=== PATIENT | male | born 1985 | race Caucasian/White ===

== ENCOUNTER 2017-10-12 19:05 | Inpatient (IN) ==
[2017-10-12] MEDS ORDERED: Ondansetron 4 MG/2 ML VIAL IVP ONE ×2 (20:32→23:49)
[2017-10-12] MEDS ORDERED: 0.9 % Sodium Chloride 1,000 ML IVC ONE ×3 (20:32→23:49)
--- NOTE | 2017-10-12 20:33 | Emergency Department Note ---
Disposition Clinical Impression: Tachycardia, Elevated liver enzymes Fever Qualifiers: Fever type: unspecified Qualified Code(s): R50.9 - Fever, unspecified Leukocytosis Qualifiers: Leukocytosis type: unspecified Qualified Code(s): D72.829 - Elevated white blood cell count, unspecified Diarrhea Qualifiers: Diarrhea type: presumed infectious Qualified Code(s): R19.7 - Diarrhea, unspecified Abdominal pain Qualifiers: Abdominal location: unspecified location Qualified Code(s): R10.9 - Unspecified abdominal pain Disposition: Admitted As Inpatient Condition: Fair General Adult HPI - General Chief complaint: ED Nausea/Vomiting/Diarrhea Stated complaint: Vomiting and diarrhea CAROLIN and cold chills Nursing Notes Reviewed: Yes Vital Signs Reviewed: Yes - History of Present Illness HPI Narrative: 32-year-old male presents to emergency department with concern for fever, nausea , vomiting, diarrhea. Patient had cholecystectomy performed on October 01. Patient states that he has done fine since operation. Patient reports having fevers up to 102. States that the reason he came is because of the nausea vomiting and diarrhea. Has reported yellowish loose stools. Nonbloody in nature. States that he has a sick contact at home with son, but he has pneumonia. Children does not have diarrhea. Patient states that the incision sites have not been red or erythematous. Does report having a dose of Clindamycin during surgery. Denies any flank pain, cough, dyspnea, sputum production. Pain Scale: 10 - Related Data Previous Rx's Medication Instructions Recorded OxyCODONE/APAP 10/325 [Percocet 1 each PO Q6HR PRN 6 Days #24 10/01/17 10/325 MG] tablet Allergies Allergy/AdvReac Type Severity Reaction Status Date / Time Penicillins Allergy See Verified 10/01/17 13:53 Comments All systems ED: reviewed and negative except as stated. Review of Systems: As Per HPI Constitutional: Reports: fever Gastrointestinal: Reports: abdominal pain, nausea, vomiting, diarrhea Genitourinary: Denies: urgency, dysuria, frequency, hematuria Musculoskeletal: Denies: back pain, arthralgia, myalgia Integumentary: Denies: rash Neurological: Denies: headache, weakness, numbness Past Medical History - Past Medical History Medical history: Reports: no medical history Psychiatric history: Reports: no psych history - Social History Smoking Status: Former smoker Smokeless Tobacco Status: No Alcohol use: Reports: occasionally Drug use: Reports: none Physical Exam - General Limitations: no limitations, other (Is uncomfortable) General appearance: alert - Head Head exam: atraumatic, normocephalic - Eye Eye exam: Present: EOMI. Absent: scleral icterus, conjunctival injection - ENT ENT exam: mucous membranes dry - Neck Neck exam: Present: trachea midline. Absent: tenderness, meningismus - Chest Chest inspection: Present: symmetric chest wall rise - Respiratory Respiratory exam: Present: normal lung sounds bilaterally. Absent: respiratory distress - Cardiovascular Cardiovascular exam: Present: normal rhythm, tachycardia - Abdominal Exam Abdominal exam: Present: soft, Non-Tender. Absent: distention, guarding, rebound, rigidity - Extremities Exam Extremities exam: Present: full ROM, normal capillary refill - Back Exam Back exam: Absent: CVA tenderness (R), CVA tenderness (L) - Neurological Exam Neurological exam: Present: alert, oriented X3 - Psychiatric Psychiatric exam: Present: normal affect, normal mood - Skin Skin exam: Present: diaphoresis Course Vital Signs Temperature 98.8 F 10/12/17 19:18 Pulse Rate 125 10/12/17 19:18 Respiratory Rate 14 10/12/17 19:18 Blood Pressure 128/81 10/12/17 19:18 O2 Sat by Pulse Oximetry 96 10/12/17 19:18 Temperature 98.4 F 10/13/17 01:39 Pulse Rate 120 10/13/17 01:39 Respiratory Rate 20 10/13/17 01:39 Blood Pressure 126/55 10/13/17 01:39 O2 Sat by Pulse Oximetry 95 10/13/17 01:39 Oxygen Delivery Oxygen Delivery Room Air Medical Decision Making - [facility] Narrative Medical decision making narrative: 32-year-old male presents to the emergency department with fever, tachycardia, diarrhea. Patient had surgery done by Dr. Gray on October 01. Patient does not report any abdominal pain. There is concern for infection, possibly GI, possibly respiratory, and PE as patient was 94% on room air at times and tachycardic. Tmax of 102. CTA of the chest do not reveal any evidence of pulmonary embolus. It was, however, a poor study. CT of the abdomen and pelvis does not reveal any evidence of any acute abnormality either. Patient did have elevated hepatic transaminases. There may be some concern for possibility of retained gallstone. Has not been ruled out at this time. Patient has had loose stools. He did have clindamycin prior to surgery, but it was only a one-time dose. There is some concern for C. difficile. We have ordered a GI infection panel. Patient has mild leukocytosis. I spoke with Dr. Espino, the general surgeon regarding the case, and she stated that she would recommend hospitalization for the patient, but wanted the hospitalist to admit patient. I spoke with the hospitalist regarding her the patient and agree to accept admission. Patient was given Flagyl and Rocephin in the emergency department to cover C. difficile as well as gram negatives for possible GI infection. I spoke with patient and at bedside who is nurse, and agree with the plan. Patient was given a total of 3 L of fluid in the emergency department. He was also given analgesia for his pain as well as Zofran. He was still tachycardic at time of admission, but his heart rate decreased from 125 to the low 100s. Lactic acid was normal, normal renal function. Abdomen/Pelvis CT 10/12/17 20:45 IMPRESSION: 1. There is mild induration noted near the umbilicus as well as in the cholecystectomy bed, compatible with recent surgery. No focal fluid collection is identified. 2. Suboptimal opacification of the pulmonary arteries with intravenous contrast. However, there is no evidence of a pulmonary embolism or parenchymal lung infiltrate. 3. The appendix is visualized and normal in appearance. D/ / 10/12/2017 23:01:21 Bunny Kauffman MD / kiana Interpreting Provider: Bunny Kauffman MD Chest X-Ray 10/12/17 20:46 IMPRESSION: No acute cardiopulmonary process. D/ / 10/12/2017 21:52:31 Bigg Keith MD / kiana Interpreting Provider: Bigg Keith MD Chest CTA 10/12/17 21:41 IMPRESSION: 1. There is mild induration noted near the umbilicus as well as in the cholecystectomy bed, compatible with recent surgery. No focal fluid collection is identified. 2. Suboptimal opacification of the pulmonary arteries with intravenous contrast. However, there is no evidence of a pulmonary embolism or parenchymal lung infiltrate. 3. The appendix is visualized and normal in appearance. D/ / 10/12/2017 23:01:21 Bunny Kauffman MD / kiana Interpreting Provider: Bunny Kauffman MD Vital Signs Temperature 98.8 F 10/12/17 19:18 Pulse Rate 125 10/12/17 19:18 Respiratory Rate 14 10/12/17 19:18 Blood Pressure 128/81 10/12/17 19:18 O2 Sat by Pulse Oximetry 96 10/12/17 19:18 Temperature 98.4 F 10/13/17 01:39 Pulse Rate 120 10/13/17 01:39 Respiratory Rate 20 10/13/17 01:39 Blood Pressure 126/55 10/13/17 01:39 O2 Sat by Pulse Oximetry 95 10/13/17 01:39 Oxygen Delivery Oxygen Delivery Room Air - Lab Data Result diagrams: 10/12/17 20:42 10/12/17 20:42 Lab Results 10/12/17 10/12/17 10/12/17 Range/Units 20:34 20:42 20:42 WBC 13.5 H (4.3-11.1) K/mcL RBC 6.18 H (4.19-5.50) M/mcL Hgb 19.0 H (12.9-16.9) g/dL Hct 52.5 H (37.5-50.1) % MCV 85.0 (83.0-100.0) fL MCH 30.7 (28.0-33.3) pg MCHC 36.2 H (31.6-35.5) g/dL RDW 12.4 (11.5-14.5) % Plt Count 313 (140-400) K/mcL MPV 11.2 (9.4-12.4) fL Immature Gran % 0.7 (0-4) % Seg Neutrophils % 89.9 % Lymphocytes % 2.7 % Monocytes % 6.2 % Eosinophils % 0.3 % Basophils % 0.2 % Neutrophils # 12.1 H (1.6-8.9) K/mcL Lymphocytes # 0.4 L (0.6-4.6) K/mcL Monocytes # 0.8 (0.0-1.3) K/mcL Eosinophils # 0.0 (0.0-0.6) K/mcL Basophils # 0.0 (0.0-0.2) K/mcL Sodium 136 (136-145) mEq/L Potassium 3.9 (3.5-5.1) mEq/L Chloride 102 (98-107) mEq/L Carbon Dioxide 23 (23-29) mEq/L BUN 12 (6-20) mg/dL Creatinine 1.21 (0.70-1.30) mg/dL Est GFR ( Amer) > 60 (> 60) Est GFR (Non-Af Amer) > 60 (> 60) BUN/Creatinine Ratio 10 (6-26) Glucose 98 (70-105) mg/dL Calculated Osmolality 282 (280-300) Lactic Acid (0.5-2.2) mmol/L Calcium 10.1 (8.6-10.3) mg/dL Total Bilirubin 1.2 H (0.3-1.0) mg/dL Direct Bilirubin 0.2 (0.0-0.2) mg/dL Indirect Bilirubin 1.0 (0.0-1.2) mg/dL AST 45 H (13-39) Units/L ALT 115 H (7-52) Units/L Alkaline Phosphatase 168 H (34-104) Units/L Serum Total Protein 8.2 (6.4-8.9) g/dL Albumin 5.2 (3.5-5.7) g/dL Globulin 3.0 (2.4-3.5) g/dL Albumin/Globulin Ratio 1.7 (1.1-2.2) Lipase 24 (11-82) Units/L Urine Color Dark Yellow (Yellow) Urine Clarity Clear (Clear) Urine pH 5.5 (5.0-8.0) pH Units Ur Specific [place] 1.029 H (1.010-1.025) Urine Protein Trace (Neg-Trace) mg/dL Urine Glucose (UA) Normal (Normal) mg/dL Urine Ketones Trace H (Negative) mg/dL Urine Blood Negative (Negative) Urine Nitrite Negative (Negative) Urine Bilirubin Small H (Negative) Urine Urobilinogen Normal (Normal) mg/dL Ur Leukocyte Esterase Small H (Negative) Urine Microscopic RBC 0-3 (0-3) per hpf Urine Microscopic WBC 5-15 H (0-3) per hpf Ur Squamous Epith Cells Many H (None-Few) per lpf Urine Bacteria None Seen (None-Few) per hpf Hyaline Casts Few (None-Few) per lpf Ur Culture Indicated? NO. A (NO) 10/12/17 Range/Units 20:42 WBC (4.3-11.1) K/mcL RBC (4.19-5.50) M/mcL Hgb (12.9-16.9) g/dL Hct (37.5-50.1) % MCV (83.0-100.0) fL MCH (28.0-33.3) pg MCHC (31.6-35.5) g/dL RDW (11.5-14.5) % Plt Count (140-400) K/mcL MPV (9.4-12.4) fL Immature Gran % (0-4) % Seg Neutrophils % % Lymphocytes % % Monocytes % % Eosinophils % % Basophils % % Neutrophils # (1.6-8.9) K/mcL Lymphocytes # (0.6-4.6) K/mcL Monocytes # (0.0-1.3) K/mcL Eosinophils # (0.0-0.6) K/mcL Basophils # (0.0-0.2) K/mcL Sodium (136-145) mEq/L Potassium (3.5-5.1) mEq/L Chloride (98-107) mEq/L Carbon Dioxide (23-29) mEq/L BUN (6-20) mg/dL Creatinine (0.70-1.30) mg/dL Est GFR ( Amer) (> 60) Est GFR (Non-Af Amer) (> 60) BUN/Creatinine Ratio (6-26) Glucose (70-105) mg/dL Calculated Osmolality (280-300) Lactic Acid 1.9 (0.5-2.2) mmol/L Calcium (8.6-10.3) mg/dL Total Bilirubin (0.3-1.0) mg/dL Direct Bilirubin (0.0-0.2) mg/dL Indirect Bilirubin (0.0-1.2) mg/dL AST (13-39) Units/L ALT (7-52) Units/L Alkaline Phosphatase (34-104) Units/L Serum Total Protein (6.4-8.9) g/dL Albumin (3.5-5.7) g/dL Globulin (2.4-3.5) g/dL Albumin/Globulin Ratio (1.1-2.2) Lipase (11-82) Units/L Urine Color (Yellow) Urine Clarity (Clear) Urine pH (5.0-8.0) pH Units Ur Specific [place] (1.010-1.025) Urine Protein (Neg-Trace) mg/dL Urine Glucose (UA) (Normal) mg/dL Urine Ketones (Negative) mg/dL Urine Blood (Negative) Urine Nitrite (Negative) Urine Bilirubin (Negative) Urine Urobilinogen (Normal) mg/dL Ur Leukocyte Esterase (Negative) Urine Microscopic RBC (0-3) per hpf Urine Microscopic WBC (0-3) per hpf Ur Squamous Epith Cells (None-Few) per lpf Urine Bacteria (None-Few) per hpf Hyaline Casts (None-Few) per lpf Ur Culture Indicated? (NO)
[2017-10-12] MEDS ORDERED: Isovue-370 500 ML INFUS..BTL IV ONE (20:45)
[2017-10-12 20:59] LABS: Basophils % 0.2 %; Eosinophils % 0.3 %; Hematocrit 52.5 % (37.5-50.1); Immature Granulocytes % 0.7 % (0-4); Lymphocytes # 0.4 K/mcL (0.6-4.6); Lymphocytes % 2.7 %; Mean Corpuscular HGB Conc 36.2 g/dL (31.6-35.5); Mean Corpuscular Hemoglobin 30.7 pg (28.0-33.3); Mean Platelet Volume 11.2 fL (9.4-12.4); Monocytes # 0.8 K/mcL (0.0-1.3); Monocytes % 6.2 %; Neutrophils # 12.1 K/mcL (1.6-8.9); Platelet Count 313 K/mcL (140-400); Red Blood Count 6.18 M/mcL (4.19-5.50); Red Cell Distribution Width 12.4 % (11.5-14.5); Segmented Neutrophils % 89.9 %
[2017-10-12 20:59] LABS: Bilirubin,Urine Small (Negative); Blood,Urine Negative (Negative); Clarity,Urine Clear (Clear); Color,Urine Dark Yellow (Yellow); Glucose,Urine (UA) Normal (Normal); Ketones,Urine Trace mg/dL (Negative); Leukocyte Esterase,Urine Small (Negative); Nitrite,Urine Negative (Negative); PH,Urine 5.5 pH Units (5.0-8.0); Protein,Urine Trace mg/dL (Neg-Trace); Specific Gravity,Urine 1.029 (1.010-1.025); Urobilinogen,Urine Normal (Normal)
[2017-10-12 21:02] LABS: Bacteria,Urine None Seen per hpf (None-Few); Hyaline Casts,Urine Few per lpf (None-Few); RBC,Urine 0-3 per hpf (0-3); Squamous Epithelial Cell,Urine Many per lpf (None-Few)
[2017-10-12 21:30] LABS: Alanine Aminotransferase 115 Units/L (7-52); Albumin 5.2 g/dL (3.5-5.7); Albumin/Globulin Ratio 1.7 (1.1-2.2); Alkaline Phosphatase 168 Units/L (34-104); Aspartate Amino Transferase 45 Units/L (13-39); BUN/Creatinine Ratio 10 (6-26); Bilirubin,Direct 0.2 mg/dL (0.0-0.2); Bilirubin,Total 1.2 mg/dL (0.3-1.0); Blood Urea Nitrogen 12 mg/dL (6-20); Calcium 10.1 mg/dL (8.6-10.3); Carbon Dioxide 23 mEq/L (23-29); Chloride 102 mEq/L (98-107); Glucose 98 mg/dL (70-105); Lipase 24 Units/L (11-82); Osmolality,Calculated 282 (280-300); Potassium 3.9 mEq/L (3.5-5.1); Sodium 136 mEq/L (136-145); Total Protein 8.2 g/dL (6.4-8.9); eGFR For African Americans > 60 (> 60); eGFR For Non-African Americans > 60 (> 60)
--- NOTE | 2017-10-12 22:42 | Emergency Department Note ---
Disposition Clinical Impression: Abdominal pain, Fever Disposition: Still a Patient Condition: Fair Referrals: Jeff Ahuja MD [Primary Care Provider] - Forms: ED Satisfaction Letter, Work/School Release General Adult HPI - General Chief complaint: ED Nausea/Vomiting/Diarrhea Stated complaint: Vomiting and diarrhea CAROLIN and cold chills Time Seen by Provider: 10/12/17 20:34 Source: patient Mode of arrival: ambulatory Limitations: no limitations Nursing Notes Reviewed: Yes Vital Signs Reviewed: Yes - History of Present Illness Pain Scale: 5 - Related Data Previous Rx's Medication Instructions Recorded OxyCODONE/APAP 10/325 [Percocet 1 each PO Q6HR PRN 6 Days #24 10/01/17 10/325 MG] tablet Allergies Allergy/AdvReac Type Severity Reaction Status Date / Time Penicillins Allergy See Verified 10/01/17 13:53 Comments Past Medical History - Past Medical History Medical history: Reports: no medical history Psychiatric history: Reports: no psych history - Social History Smoking Status: Former smoker Smokeless Tobacco Status: No Alcohol use: Reports: occasionally Drug use: Reports: none Physical Exam - General General appearance: alert, in no apparent distress Course Vital Signs Temperature 98.8 F 10/12/17 19:18 Pulse Rate 125 10/12/17 19:18 Respiratory Rate 14 10/12/17 19:18 Blood Pressure 128/81 10/12/17 19:18 O2 Sat by Pulse Oximetry 96 10/12/17 19:18 Temperature 98.8 F 10/12/17 21:00 Pulse Rate 104 10/12/17 22:30 Respiratory Rate 20 10/12/17 22:30 Blood Pressure 151/92 10/12/17 22:30 O2 Sat by Pulse Oximetry 99 10/12/17 22:30 Oxygen Delivery Oxygen Delivery Room Air Medical Decision Making - Lab Data Result diagrams: 10/12/17 20:42 10/12/17 20:42 Lab Results 10/12/17 10/12/17 10/12/17 Range/Units 20:34 20:42 20:42 WBC 13.5 H (4.3-11.1) K/mcL RBC 6.18 H (4.19-5.50) M/mcL Hgb 19.0 H (12.9-16.9) g/dL Hct 52.5 H (37.5-50.1) % MCV 85.0 (83.0-100.0) fL MCH 30.7 (28.0-33.3) pg MCHC 36.2 H (31.6-35.5) g/dL RDW 12.4 (11.5-14.5) % Plt Count 313 (140-400) K/mcL MPV 11.2 (9.4-12.4) fL Immature Gran % 0.7 (0-4) % Seg Neutrophils % 89.9 % Lymphocytes % 2.7 % Monocytes % 6.2 % Eosinophils % 0.3 % Basophils % 0.2 % Neutrophils # 12.1 H (1.6-8.9) K/mcL Lymphocytes # 0.4 L (0.6-4.6) K/mcL Monocytes # 0.8 (0.0-1.3) K/mcL Eosinophils # 0.0 (0.0-0.6) K/mcL Basophils # 0.0 (0.0-0.2) K/mcL Sodium 136 (136-145) mEq/L Potassium 3.9 (3.5-5.1) mEq/L Chloride 102 (98-107) mEq/L Carbon Dioxide 23 (23-29) mEq/L BUN 12 (6-20) mg/dL Creatinine 1.21 (0.70-1.30) mg/dL Est GFR ( Amer) > 60 (> 60) Est GFR (Non-Af Amer) > 60 (> 60) BUN/Creatinine Ratio 10 (6-26) Glucose 98 (70-105) mg/dL Calculated Osmolality 282 (280-300) Lactic Acid (0.5-2.2) mmol/L Calcium 10.1 (8.6-10.3) mg/dL Total Bilirubin 1.2 H (0.3-1.0) mg/dL Direct Bilirubin 0.2 (0.0-0.2) mg/dL Indirect Bilirubin 1.0 (0.0-1.2) mg/dL AST 45 H (13-39) Units/L ALT 115 H (7-52) Units/L Alkaline Phosphatase 168 H (34-104) Units/L Serum Total Protein 8.2 (6.4-8.9) g/dL Albumin 5.2 (3.5-5.7) g/dL Globulin 3.0 (2.4-3.5) g/dL Albumin/Globulin Ratio 1.7 (1.1-2.2) Lipase 24 (11-82) Units/L Urine Color Dark Yellow (Yellow) Urine Clarity Clear (Clear) Urine pH 5.5 (5.0-8.0) pH Units Ur Specific [place] 1.029 H (1.010-1.025) Urine Protein Trace (Neg-Trace) mg/dL Urine Glucose (UA) Normal (Normal) mg/dL Urine Ketones Trace H (Negative) mg/dL Urine Blood Negative (Negative) Urine Nitrite Negative (Negative) Urine Bilirubin Small H (Negative) Urine Urobilinogen Normal (Normal) mg/dL Ur Leukocyte Esterase Small H (Negative) Urine Microscopic RBC 0-3 (0-3) per hpf Urine Microscopic WBC 5-15 H (0-3) per hpf Ur Squamous Epith Cells Many H (None-Few) per lpf Urine Bacteria None Seen (None-Few) per hpf Hyaline Casts Few (None-Few) per lpf Ur Culture Indicated? NO. A (NO) 10/12/17 Range/Units 20:42 WBC (4.3-11.1) K/mcL RBC (4.19-5.50) M/mcL Hgb (12.9-16.9) g/dL Hct (37.5-50.1) % MCV (83.0-100.0) fL MCH (28.0-33.3) pg MCHC (31.6-35.5) g/dL RDW (11.5-14.5) % Plt Count (140-400) K/mcL MPV (9.4-12.4) fL Immature Gran % (0-4) % Seg Neutrophils % % Lymphocytes % % Monocytes % % Eosinophils % % Basophils % % Neutrophils # (1.6-8.9) K/mcL Lymphocytes # (0.6-4.6) K/mcL Monocytes # (0.0-1.3) K/mcL Eosinophils # (0.0-0.6) K/mcL Basophils # (0.0-0.2) K/mcL Sodium (136-145) mEq/L Potassium (3.5-5.1) mEq/L Chloride (98-107) mEq/L Carbon Dioxide (23-29) mEq/L BUN (6-20) mg/dL Creatinine (0.70-1.30) mg/dL Est GFR ( Amer) (> 60) Est GFR (Non-Af Amer) (> 60) BUN/Creatinine Ratio (6-26) Glucose (70-105) mg/dL Calculated Osmolality (280-300) Lactic Acid 1.9 (0.5-2.2) mmol/L Calcium (8.6-10.3) mg/dL Total Bilirubin (0.3-1.0) mg/dL Direct Bilirubin (0.0-0.2) mg/dL Indirect Bilirubin (0.0-1.2) mg/dL AST (13-39) Units/L ALT (7-52) Units/L Alkaline Phosphatase (34-104) Units/L Serum Total Protein (6.4-8.9) g/dL Albumin (3.5-5.7) g/dL Globulin (2.4-3.5) g/dL Albumin/Globulin Ratio (1.1-2.2) Lipase (11-82) Units/L Urine Color (Yellow) Urine Clarity (Clear) Urine pH (5.0-8.0) pH Units Ur Specific [place] (1.010-1.025) Urine Protein (Neg-Trace) mg/dL Urine Glucose (UA) (Normal) mg/dL Urine Ketones (Negative) mg/dL Urine Blood (Negative) Urine Nitrite (Negative) Urine Bilirubin (Negative) Urine Urobilinogen (Normal) mg/dL Ur Leukocyte Esterase (Negative) Urine Microscopic RBC (0-3) per hpf Urine Microscopic WBC (0-3) per hpf Ur Squamous Epith Cells (None-Few) per lpf Urine Bacteria (None-Few) per hpf Hyaline Casts (None-Few) per lpf Ur Culture Indicated? (NO) Attestation Statement - Attestation Attestation: I, Romero Quezada, examined this patient and my medical decision-making was reviewed with the STATIONARY STEAM ENGINEER/PA/Advanced Practice Nurse/Resident Physician. I agree with the documented findings, disposition and treatment plan as described except to the extent set forth below. 32-year-old male presents emergency Department with concerns of vomiting and diarrhea. Patient had a recent cholecystectomy by Dr. Gray 1.5 weeks ago. He reports a fever of 102 today prior to arrival. He describes multiple episodes of vomiting and yellow mucus diarrhea. States he had a surgery that was without complication. His surgical sites have not been draining fluid or had increased pain. Patient denies recent trauma. Patient was tachycardic to 125 on arrival. This improved with IV fluids. We will obtain a CTA of the chest to rule out PE, CT of the abdomen and pelvis with IV contrast to further evaluate for possible abscess. Imaging is pending at this time.
[2017-10-12] MEDS ORDERED: MetroNIDAZOLE 500 MG/100 ML 500 MG/100 ML BAG IVPB ONE (23:48)
[2017-10-12] MEDS ORDERED: cefTRIAXone 1,000 MG in Water for inj. (sterile) 20 ML 10 ML IVP ONE (23:48)
[2017-10-12] MEDS ORDERED: *HR* OxyCODONE/APAP 5/325 TABLET PO ONE (23:49)
[2017-10-12] MEDS ORDERED: Ketorolac 15 MG/ML VIAL IVP ONE (23:50)
--- NOTE | 2017-10-13 01:19 | Internal Med History&Physical ---
Date of Encounter: 10/13/17 Time of Encounter: 01:16 Internal Medicine - H&P: HPI Chief complaint: Fever Admitted From: Emergency Dept Plans for Post Hospital Care: Home History of present illness: Mr. Olivier is a 32 year old male who recently underwent a laparoscopic cholecystectomy on 10/01 and was discharged. The patient presents to the ED with complaints of fever, tachycardia, and diarrhea that is watery. The patient also has been nauseated and vomited since this morning. No abdominal pain. In the ED the patient was noted to have a fever 102.7 and was tachycardic. Blood pressure was stable. Laboratory workup showed a white count of 13.5 with hemoglobin of 19.0. Lites were within normal limits. He had elevated LFTs which was not the case earlier in September. Creatinine was 1.21 with previous creatinine of 0.92. He had a CT head and pelvis done as well as a CTA chest came back with nothing acute. Urinalysis was negative for UTI. Because of his fever and diarrhea the patient was given Rocephin and Flagyl and was admitted. Denies any headache, blurry vision, chest pain, shortness of breath, abdominal pain, constipation, lower extremity edema, urinary symptoms, or neurological symptoms. Past Med Surg Social Fam HX - Past Medical History Medical history: no medical history Additional medical history: OBSTRUCTIVE SLEEP APNEA. DYSURIA. FREQUENT URINATION. NOCTURIA Psychiatric history: no psych history - Past Surgical History Additional surgical history: Left knee. partial lateral menisectomy X2 - Social History Smoking Status: Former smoker Smokeless Tobacco Status: No Alcohol use: occasionally Drug use: none Internal Medicine - H&P: Meds OxyCODONE/APAP 10/325 [Percocet 10/325 MG] 1 each PO Q6HR PRN 6 Days #24 tablet 10/01/17 [Rx] 3 Allergy/AdvReac Type Severity Reaction Status Date / Time Penicillins Allergy See Verified 10/01/17 13:53 Comments All Systems PM: A 10-system review of systems was performed and is negative for pertinent findings except as documented above in the HPI. Review of systems: All systems reviewed are negative except for as mentioned above - Constitutional Vitals: Temp Pulse Resp BP Pulse Ox 100.5 F H 107 20 124/77 96 10/13/17 00:57 10/13/17 01:02 10/13/17 01:02 10/13/17 01:02 10/13/17 01:02 Exam: GEN: NAD HEENT: AT, NC, No cyanosis, oral mucosa is moist, No JVD Lymphatics: No lymphadenoapthy Eyes: Extrocular muscles intact, anicteric CVS:RRR. S1, S2, No m/r/g RESP: CTAB ABD: Soft, NT, ND, +BS EXT: No edema, No rashes, 2+ DP NEURO: Nonfocal, CN II-XII intact, No focal motor or sensory deficits Psych: Cooperative, Not anxious or depressed Internal Med - H&P Results - Labs CBC & Chem 7: 10/12/17 20:42 10/12/17 20:42 - Assessment and plan (1) SIRS (systemic inflammatory response syndrome) Current Visit: Yes Status: Acute Assessment and plan: Patient meets SIRS criteria with elevated heart rate as well as leukocytosis and fever. No source is obvious for now. Given his diarrhea and exposure to antibiotics as patient received 1 dose of clindamycin with the surgery, will rule out C. difficile. We will keep the patient on IV Flagyl empirically. We will keep the patient on Rocephin as well given his elevated LFTs although I believe some of that is possibly dehydrational. (2) Leukocytosis Current Visit: Yes Status: Acute Assessment and plan: Check C. difficile. Check GI panel. Empiric antibiotics as above. Workup is negative so far. Qualifiers: Leukocytosis type: unspecified Qualified Code(s): D72.829 - Elevated white blood cell count, unspecified (3) Dehydration Current Visit: Yes Status: Acute Assessment and plan: Patient has signs of dehydration with elevated kidney function as well as polycythemia. We will continue IV fluids. The patient received a couple boluses in the ED. Labs in the morning. (4) Transaminitis Current Visit: Yes Status: Acute Assessment and plan: Possibly dehydrational. We will check labs in the morning after IV hydration. Surgery to see. (5) Polycythemia Current Visit: Yes Status: Acute Assessment and plan: Likely dehydrational. We will see what his hemoglobin looks like after hydration. (6) NATACHA (acute kidney injury) Current Visit: Yes Status: Acute Assessment and plan: Continue IV hydration. Avoid nephrotoxins. Labs in the morning. (7) S/P laparoscopic cholecystectomy Current Visit: Yes Status: Acute Assessment and plan: Surgery to see. Patient has elevated LFTs. CT abdomen and pelvis with nothing acute. (8) DVT prophylaxis Current Visit: Yes Status: Acute Assessment and plan: Heparin subcutaneous - Time Spent With Patient Total time spent is greater than 50% in coordination of care (as documented) at patient's floor/unit and/or counseling patient:
[2017-10-13] MEDS ORDERED: Ondansetron 4 MG/2 ML VIAL IVP PRN (01:21)
[2017-10-13] MEDS ORDERED: Naloxone 0.4 MG/ML INJ IVP PRN ×2 (01:22)
[2017-10-13] MEDS: 0.9 % Sodium Chloride 1,000 ML IVC SCH ×2 (02:01→08:02)
--- NOTE | 2017-10-13 07:22 | General Surgery Consult Note ---
<Tan Morillo R - Last Filed: 10/13/17 07:55> Date of Encounter: 10/13/17 Time of Encounter: 07:20 Assessment and Plan (1) Fever Status: Acute POD # 11 s/p uncomplicated laparoscopic cholecystectomy for calculus of gallbladder without cholecystitis, without obstruction (10/01/17) - incision sites are clean, dry, intact, without erythema, warmth, tenderness, or drainage Acute onset of symptoms one day ago - N/V/D, fever, dyspnea CT chest/abd/pelvis with no acute findings - mild induration consistent with recent surgery, no focal fluid collection, no dilation of hepatic ducts, no evidence of biliary clip leakage Leukocytosis and polycythemia - suspect dehydration contributing Transaminitis - AST 45, ALT 115, and Alk Phos 168 - normal at time of surgery No evidence of surgical complications, or surgical need at this time. Presentation appears more consistent with gastroenteritis PLAN: Continue IV hydration, supportive care, antiemetics GI panel pending Continue antibiotics No other imaging at this time Will continue to follow with you Qualifiers: Fever type: unspecified Qualified Code(s): R50.9 - Fever, unspecified (2) Transaminitis Status: Acute (3) S/P laparoscopic cholecystectomy Status: Acute History of Present Illness Consult date: 10/12/17 Reason for consult: other (elevated transaminases s/p cholecystectomy) Requesting physician: Chris Freitas History of present illness: 32 year old male with no PMH presented to [facility] with complaint of nausea, vomiting, and yellow mucous-like diarrhea. His symptoms began yesterday afternoon. Associated symptoms include fever up to 102, mild dyspnea, and generalized body aches. He is 11 days post-op from uncomplicated laparoscopic cholecystectomy on 10/01/17. He reports his incision sites are healing well, without redness, warmth, tenderness, or drainage. He reports some intermittent epigastric discomfort only with fatty foods. Denies other abdominal pain, hematochezia, or melena. Denies change in appetite or weight loss. Denies cough or chest pain. Sick contacts include his son was diagnosed with pneumonia last week. Past Med Surg Social Fam HX - Past Medical History Medical history: no medical history Additional medical history: OBSTRUCTIVE SLEEP APNEA. DYSURIA. FREQUENT URINATION. NOCTURIA Psychiatric history: no psych history - Past Surgical History Surgical History: cholecystectomy Additional surgical history: Left knee. partial lateral menisectomy X2 - Social History Smoking Status: Former smoker Smokeless Tobacco Status: No Alcohol use: occasionally Drug use: none - Family History Mother Living Status: Still Living Hx Family Cardiac Disorders: Yes (htn) Father Living Status: Still Living Hx Family Cardiac Disorders: Yes ([place]) Medications and Allergies Ondansetron ODT [Zofran ODT] 4 mg SL Q6HR #16 tab.rapdis 10/13/17 [Rx] metroNIDAZOLE [Flagyl] 500 mg PO ONCE #5 tablet 10/13/17 [Rx] 3 Allergy/AdvReac Type Severity Reaction Status Date / Time Penicillins Allergy See Verified 10/01/17 13:53 Comments Review of Systems All systems PM: reviewed and no additional remarkable complaints except as stated All systems PM: The remainder of the systems were reviewed and are negative General Surgery Exam Initial Vital Signs Temp Pulse Resp BP Pulse Ox 98.8 F 125 14 128/81 96 10/12/17 19:18 10/12/17 19:18 10/12/17 19:18 10/12/17 19:18 10/12/17 19:18 - Additional Findings VITAL SIGNS: Reviewed. See [facility] GENERAL: no apparent distress HEENT: Normocephalic, PER, EOMI, oropharynx pink/moist, no JVD noted CV: b/l rad pulses 2+, regular rhythm, tachycardia, no murmurs or gallops RESPIRATORY: CTAB. No weehzes, rhonchi, or crackles ABD: soft, nontender, nondistended, no rebound/guarding/rigidity, no peritoneal signs. Bowel sounds normal INCISION: clean, dry, intact without purulence/bleeding/edema/rubor/calor EXTREMITY: grossly normal motor function, no pedal edema, peripheral pulses 2+ b /l NEUROLOGIC EXAM: AOx3, obeys commands, no speech deficits. PSYCHIATRIC: normal mood and affect SKIN: no gross lesions, rashes, or skin changes Exam Initial Vital Signs Temp Pulse Resp BP Pulse Ox 98.8 F 125 14 128/81 96 10/12/17 19:18 10/12/17 19:18 10/12/17 19:18 10/12/17 19:18 10/12/17 19:18 Results - Labs 10/12/17 20:42 10/12/17 20:42 Abnormal lab results WBC 13.5 K/mcL (4.3-11.1) H 10/12/17 20:42 RBC 6.18 M/mcL (4.19-5.50) H 10/12/17 20:42 Hgb 19.0 g/dL (12.9-16.9) H 10/12/17 20:42 Hct 52.5 % (37.5-50.1) H 10/12/17 20:42 MCHC 36.2 g/dL (31.6-35.5) H 10/12/17 20:42 Neutrophils # 12.1 K/mcL (1.6-8.9) H 10/12/17 20:42 Lymphocytes # 0.4 K/mcL (0.6-4.6) L 10/12/17 20:42 Total Bilirubin 1.2 mg/dL (0.3-1.0) H 10/12/17 20:42 AST 45 Units/L (13-39) H 10/12/17 20:42 ALT 115 Units/L (7-52) H 10/12/17 20:42 Alkaline Phosphatase 168 Units/L (34-104) H 10/12/17 20:42 Ur Specific [place] 1.029 (1.010-1.025) H 10/12/17 20:34 Urine Ketones Trace mg/dL (Negative) H 10/12/17 20:34 Urine Bilirubin Small (Negative) H 10/12/17 20:34 Ur Leukocyte Esterase Small (Negative) H 10/12/17 20:34 Urine Microscopic WBC 5-15 per hpf (0-3) H 10/12/17 20:34 Ur Squamous Epith Cells Many per lpf (None-Few) H 10/12/17 20:34 Ur Culture Indicated? NO. (NO) A 10/12/17 20:34 All other labs normal. Consult Discharge Plan - Plan Instructions: Metronidazole (By mouth), Ondansetron (By mouth) Referrals: Rajwinder Forbes CNP [Advanced Practice Nurse] - 10/15/17 9:15 am Jeff Ahuja MD [Primary Care Provider] - (The office will call you with a follow-up appointment. ) Prescriptions: Ondansetron ODT [Zofran ODT] 4 mg SL Q6HR #16 tab.rapdis metroNIDAZOLE [Flagyl] 500 mg PO ONCE #5 tablet <Ze Gray T - Last Filed: 10/14/17 13:44> Date of Encounter: 10/13/17 Review of Systems All systems PM: The remainder of the systems were reviewed and are negative General Surgery Exam Initial Vital Signs Temp Pulse Resp BP Pulse Ox 98.8 F 125 14 128/81 96 10/12/17 19:18 10/12/17 19:18 10/12/17 19:18 10/12/17 19:18 10/12/17 19:18 Exam Initial Vital Signs Temp Pulse Resp BP Pulse Ox 98.8 F 125 14 128/81 96 10/12/17 19:18 10/12/17 19:18 10/12/17 19:18 10/12/17 19:18 10/12/17 19:18 Results - Labs 10/13/17 07:20 10/13/17 07:20 Abnormal lab results Lymphocytes # 0.4 K/mcL (0.6-4.6) L 10/13/17 07:20 PT 12.8 Seconds (9.4-12.1) H 10/13/17 07:20 Chloride 108 mEq/L (98-107) H 10/13/17 07:20 Carbon Dioxide 22 mEq/L (23-29) L 10/13/17 07:20 Calcium 8.2 mg/dL (8.6-10.3) L 10/13/17 07:20 ALT 85 Units/L (7-52) H 10/13/17 07:20 Alkaline Phosphatase 105 Units/L (34-104) H 10/13/17 07:20 Serum Total Protein 5.3 g/dL (6.4-8.9) L 10/13/17 07:20 Albumin 3.4 g/dL (3.5-5.7) L 10/13/17 07:20 Globulin 1.9 g/dL (2.4-3.5) L 10/13/17 07:20 Ur Specific [place] 1.029 (1.010-1.025) H 10/12/17 20:34 Urine Ketones Trace mg/dL (Negative) H 10/12/17 20:34 Urine Bilirubin Small (Negative) H 10/12/17 20:34 Ur Leukocyte Esterase Small (Negative) H 10/12/17 20:34 Urine Microscopic WBC 5-15 per hpf (0-3) H 10/12/17 20:34 Ur Squamous Epith Cells Many per lpf (None-Few) H 10/12/17 20:34 Ur Culture Indicated? NO. (NO) A 10/12/17 20:34 Stl Norovirus GI/GII PCR DETECTED (Not detect) A 10/13/17 08:10 All other labs normal. - Attending Attestation I examined this patient and my medical decision-making was reviewed with the Resident Physician. I agree with the documented findings, disposition and treatment plan as described except to the extent set forth below. The patient is seen and evaluated on morning rounds with the resident. The patient had laparoscopic cholecystectomy several weeks ago. He is well-healed. He presents with diarrhea. CAT scan is reviewed. There is no evidence of complication from surgery no evidence of bile leak. We will be glad to follow along with you Dasia Gray MD FACS
[2017-10-13] MEDS ORDERED: MetroNIDAZOLE 500 MG/100 ML 500 MG/100 ML BAG IVPB SCH (08:00)
[2017-10-13] MEDS: Acetaminophen 325 MG TABLET PO PRN ×2 (08:01→13:56)
[2017-10-13 08:27] LABS: Basophils % 0.1 %; Eosinophils % 0.1 %; Hematocrit 41.6 % (37.5-50.1); Immature Granulocytes % 0.7 % (0-4); Lymphocytes # 0.4 K/mcL (0.6-4.6); Lymphocytes % 5.6 %; Mean Corpuscular HGB Conc 34.1 g/dL (31.6-35.5); Mean Corpuscular Volume 85.1 fL (83.0-100.0); Mean Platelet Volume 11.2 fL (9.4-12.4); Monocytes % 13.6 %; Platelet Count 221 K/mcL (140-400); Red Blood Count 4.89 M/mcL (4.19-5.50); Red Cell Distribution Width 12.5 % (11.5-14.5); Segmented Neutrophils % 79.9 %
[2017-10-13 08:31] LABS: INR 1.2; Prothrombin Time 12.8 Seconds (9.4-12.1)
[2017-10-13 08:50] LABS: Alanine Aminotransferase 85 Units/L (7-52); Albumin 3.4 g/dL (3.5-5.7); Albumin/Globulin Ratio 1.8 (1.1-2.2); Alkaline Phosphatase 105 Units/L (34-104); Aspartate Amino Transferase 39 Units/L (13-39); BUN/Creatinine Ratio 9 (6-26); Blood Urea Nitrogen 9 mg/dL (6-20); Calcium 8.2 mg/dL (8.6-10.3); Carbon Dioxide 22 mEq/L (23-29); Chloride 108 mEq/L (98-107); Globulin 1.9 g/dL (2.4-3.5); Glucose 90 mg/dL (70-105); Magnesium 1.7 mg/dL (1.6-2.6); Osmolality,Calculated 284 (280-300); Potassium 3.8 mEq/L (3.5-5.1); Sodium 138 mEq/L (136-145); Total Protein 5.3 g/dL (6.4-8.9); eGFR For African Americans > 60 (> 60); eGFR For Non-African Americans > 60 (> 60)
[2017-10-13 09:18] LABS: Hemoglobin 14.2 g/dL (12.9-16.9)
[2017-10-13 10:36] LABS: Adenovirus F 40/41 PCR Not detected (Not detect); Astrovirus PCR Not detected (Not detect); C.difficile Toxin A/B by PCR Not detected (Not detect); Campylobacter by PCR Not detected (Not detect); Cryptosporidium by PCR Not detected (Not detect); Cyclospora cayetanensis PCR Not detected (Not detect); E. coli O157 by PCR Not detected (Not detect); Entamoeba histolytica PCR Not detected (Not detect); Enteroaggregative E.coli(EAEC) Not detected (Not detect); Enteropathogenic E.coli(EPEC) Not detected (Not detect); Enterotoxigenic E.coli (ETEC) Not detected (Not detect); Giardia lamblia PCR Not detected (Not detect); Plesiomonas shigelloides PCR Not detected (Not detect); Salmonella PCR Not detected (Not detect); Shig/EnteroinvasiveE coli EIEC Not detected (Not detect); Shigalike tox-prod E coli STEC Not detected (Not detect); Vibrio PCR Not detected (Not detect); Vibrio cholerae PCR Not detected (Not detect); Yersinia enterocolitica PCR Not detected (Not detect)
[2017-10-13 10:37] LABS: Norovirus GI/GII PCR ***DETECTED*** (Not detect); Rotavirus A PCR Not detected (Not detect); Sapovirus PCR Not detected (Not detect)
[2017-10-13 14:59] VITALS: BP 129/85
--- NOTE | 2017-10-13 15:48 | Discharge Summary ---
- NOTES TO OUTPATIENT PROVIDER Notes to Outpatient Provider: Pt was admitted for SIRs, transaminitis, and mild NATACHA. He was 10days s/p lap steven. He began having n/v/d for about 8-12 hours prior to arrival. Pt met SIRS criteria and had a fever and tachycardia on the morning of 10/13. Pt states that he has to go to work tomorrow and is unable to stay. Per advice of director, pt was discharged with Flagyl, Magdalena had already been called in prior to this conversation. Date of Encounter: 10/13/17 Time of Encounter: 10:00 - Discharge Diagnosis (1) SIRS (systemic inflammatory response syndrome) Priority: Secondary Status: Acute Assessment and Plan: On admission, patient met sirs criteria with tachycardia, leukocytosis, and fever. There is no obvious source of infection. Patient was treated with IV Flagyl empirically, patient was also given Rocephin on admission. Patient with fever this morning at 0100, tachycardia persisted until 0139. Temp and heart rate are within normal limits, patient is normotensive. Due to meeting sirs criteria, patient has not been fever free for 24 hours. Patient was going to sign out AGAINST MEDICAL ADVICE. (2) Transaminitis Priority: Secondary Status: Acute Assessment and Plan: Possibly related to dehydration, recent laparoscopic cholecystectomy. Labs did improve this morning, AST is return to normal limits, ALT has reduced from 115 to 85. Patient will need to follow up with primary care after discharge. No obvious hepatomegaly noted, no abdominal pain or tenderness. (3) Leukocytosis Priority: Secondary Status: Acute Assessment and Plan: Resolved this a.m. Patient was treated empirically with antibiotics. There is no obvious sign of infection. CT abdomen and pelvis without evidence of PE, appendix are normal, no focal fluid in the abdomen. Chest x-ray is negative. Urine does not indicate urinary tract infection, no culture was indicated. Respiratory infectious panel positive for norovirus, likely source of nausea, vomiting, diarrhea, and leukocytosis. Abdomen/Pelvis CT 10/12/17 20:45 IMPRESSION: 1. There is mild induration noted near the umbilicus as well as in the cholecystectomy bed, compatible with recent surgery. No focal fluid collection is identified. 2. Suboptimal opacification of the pulmonary arteries with intravenous contrast. However, there is no evidence of a pulmonary embolism or parenchymal lung infiltrate. 3. The appendix is visualized and normal in appearance. D/ / 10/12/2017 23:01:21 Bunny Kauffman MD / kiana Interpreting Provider: Bunny Kauffman MD Chest X-Ray 10/12/17 20:46 IMPRESSION: No acute cardiopulmonary process. D/ / 10/12/2017 21:52:31 Bigg Keith MD / kiana Interpreting Provider: Bigg Keith MD Chest CTA 10/12/17 21:41 IMPRESSION: 1. There is mild induration noted near the umbilicus as well as in the cholecystectomy bed, compatible with recent surgery. No focal fluid collection is identified. 2. Suboptimal opacification of the pulmonary arteries with intravenous contrast. However, there is no evidence of a pulmonary embolism or parenchymal lung infiltrate. 3. The appendix is visualized and normal in appearance. D/ / 10/12/2017 23:01:21 Bunny Kauffman MD / kiana Interpreting Provider: Bunny Kauffman MD Qualifiers: Leukocytosis type: unspecified Qualified Code(s): D72.829 - Elevated white blood cell count, unspecified (4) Polycythemia Priority: Secondary Status: Resolved Assessment and Plan: Resolved. Likely due to dehydration. (5) Dehydration Priority: Secondary Status: Acute Assessment and Plan: Resolved. Likely secondary to nausea, vomiting, and diarrhea. Patient was treated with IV fluids and improved. Labs and electrolytes are within normal limits. (6) S/P laparoscopic cholecystectomy Priority: Secondary Status: Acute Assessment and Plan: Patient is postop day 11. He has been evaluated by surgery. Patient has advanced from clear liquids to regular diet. Per surgery note, patient had an uncomplicated laparoscopic cholecystectomy or calculus of gallbladder without cholecystitis without obstruction on 10/01/17. (7) Nausea & vomiting Priority: Secondary Status: Acute Assessment and Plan: Pt presented to the ED with nausea, vomiting, and diarrhea which appears to have resolved. She denies any nausea or vomiting, diarrhea, or abdominal pain today. Electrolytes are within normal limits, no obvious signs of dehydration, renal function is within normal limits. Qualifiers: Vomiting type: unspecified Vomiting Intractability: non-intractable Qualified Code(s): R11.2 - Nausea with vomiting, unspecified (8) DVT prophylaxis Priority: Secondary Status: Acute Assessment and Plan: Patient is ambulatory in room. Hospital course: Mr. Olivier is a 32 year old male with PMH including recent lap steven who presented with n/v/d, mild dehydration, likely secondary to norovirus. Pt with leukocytosis, fever, tachycardia, as recent as 14 hours ago. Pt has been given IVF boluses, labs are stable, leukocytosis has resolved and lytes are WNL. Due to pt's fever and tachycardia, SIRS criteria within the last 24 hours, I requested that he sign out AMA. Case was discussed with me by Dr. Tamir Harden who requested that I discharge pt with Flagyl, I have already e-prescribed Zofran ODT prior to this discussion. Discharge discussed with: patient - Time Spent with Patient Total time spent providing and/or coordinating discharge services: Less than 30 minutes - Discharge Medications Prescriptions: Ondansetron ODT [Zofran ODT] 4 mg SL Q6HR #16 tab.rapdis metroNIDAZOLE [Flagyl] 500 mg PO ONCE #5 tablet Home Medications: Ondansetron ODT [Zofran ODT] 4 mg SL Q6HR #16 tab.rapdis 10/13/17 [Rx] metroNIDAZOLE [Flagyl] 500 mg PO ONCE #5 tablet 10/13/17 [Rx] Allergies/Adverse Reactions: 3 Allergy/AdvReac Type Severity Reaction Status Date / Time Penicillins Allergy See Verified 10/01/17 13:53 Comments Date of admission: 10/13/17 01:22 Primary care physician: Jeff Ahuja MD Discharging clinician: Lisa Wynn Anticipated date of discharge: 10/13/17 - Constitutional Vitals: Temp Pulse Resp BP Pulse Ox 98.4 F 83 15 129/85 98 10/13/17 14:53 10/13/17 14:53 10/13/17 14:53 10/13/17 14:53 10/13/17 14:53 General appearance: Present: cooperative, pleasant, no acute distress, answers questions appropriately - Head Head exam: Present: atraumatic, normal inspection, normocephalic - Eye Eye exam: Present: normal appearance, conjuntiva pink, sclera anicteric - Neck Neck exam general surgery: Present: supple, trachea midline. Absent: lymphadenopathy - Respiratory Respiratory exam: Present: CTAB. Absent: accessory muscle use, chest wall tenderness, decreased breath sounds, rales, respiratory distress, rhonchi, wheezes - Cardiovascular Cardiovascular exam: Present: RRR, +S1, +S2. Absent: diastolic murmur, gallop, rubs, systolic murmur - GI/Abdominal GI/Abdominal exam: Present: normal bowel sounds, soft. Absent: distended, hepatomegaly, tenderness - Extremities Exam Extremities exam: Present: normal capillary refill, normal inspection, warm, radial pulses palpable and symmetrical. Absent: calf tenderness, cyanotic, pedal edema, tenderness - Neurological Exam Neurological exam: Present: alert, oriented X3, no focal deficits. Absent: facial droop, speech deficit - Skin Skin exam: Present: dry, intact, normal color, warm. Absent: rash - Patient Status Disposition: Left Against Medical Advice Condition: Fair Functional capacity at discharge: independent ambulation Overall status at discharge: patient is progressing back to baseline - Discharge Instructions Follow Up With: Rajwinder Forbes CNP [Advanced Practice Nurse] - 10/15/17 9:15 am Jeff Ahuja MD [Primary Care Provider] - - Diet and Activity Activity: increase activity as tolerated
[2017-10-14] MEDS ORDERED: cefTRIAXone 1,000 MG in Water for inj. (sterile) 20 ML 10 ML IVP SCH (09:00)
== END 2017-10-13 17:04 | disposition left against medical advice (07) | DRG 392 ==
LOC: 3ANU 19:05 → EMEROO 19:05 → 3BNU 10-13 01:15
PROVIDERS: ADMIT Internal Medicine; ATTEND Internal Medicine